=== PATIENT | female | born 2000 | race Caucasian/White ===

== ENCOUNTER → 2023-06-02 | Outpatient (CLI) | payer OTHER ==
[~2023-06-02] MED LIST: FLUOCINOLONE AC TOP; Pepcid20 MG PO; Prednisone20 MG PO; Vistaril25 MG PO
[2023-06-02 13:29] LABS: Source, Urine Clean Catch
[2023-06-02 13:32] LABS: Bacteria Rare /hpf; Red Blood Cells, Urine 0-2 /hpf (0-2); Squamous Epithelial Cells Few /hpf (Few); White Blood Cells, Urine 0-2 /hpf (0-5)
== END ==
LOC: LAB SHORT 13:26 → LAB 13:26
PROVIDERS: Family Medicine
DX: R82.90 Unspecified abnormal findings in urine (principal)
CPT/HCPCS: 81015